=== PATIENT | female | born 1980 | race Caucasian/White ===

== ENCOUNTER → 2016-06-19 | Outpatient (CLI) | payer BC ==
[~2016-06-19] MED LIST: CITALOPRAM HBR10 MG PO; CRANBERRY TABL1 EACH PO; DESYREL-DPS50 MG PO; HYDROCODON-ACET15 ML PO; MELATONIN10 MG PO; PRILOSEC DPS20 MG PO; VITAMIN D10000 UNIT PO; ZOFRAN ODT4 MG PO
== END | disposition home or self-care (01) ==
LOC: NUE 09:30
DX: E66.9 Obesity, unspecified (principal); Z71.3 Dietary counseling and surveillance
CPT/HCPCS: 258

== ENCOUNTER → 2016-09-17 | Outpatient (CLI) | payer BC | END | disposition home or self-care (01) | LOC: PTH.S 07:03 | DX: Z01.818 Encounter for other preprocedural examination (principal); E66.01 Morbid (severe) obesity due to excess calories ==

== ENCOUNTER 2016-09-25 06:11 | Inpatient (IN) | payer BC ==
[~2016-09-25] VITALS: Ht 160 cm; Wt 122.8 kg
[2016-09-27] MEDS ORDERED: CITALOPRAM HBR10 MG PO (20:11)
[2016-09-27] MEDS ORDERED: DESYREL-DPS50 MG PO (20:11)
[2016-09-27] MEDS ORDERED: VITAMIN D10000 UNIT PO (20:12)
[2016-09-27] MEDS ORDERED: MELATONIN10 MG PO (20:14)
[2016-09-27] MEDS ORDERED: CRANBERRY TABL1 EACH PO (20:14)
[2016-09-27] MEDS ORDERED: HYDROCODON-ACET15 ML PO (20:15)
[2016-09-27] MEDS ORDERED: PRILOSEC DPS20 MG PO (20:15)
[2016-09-27] MEDS ORDERED: ZOFRAN ODT4 MG PO (20:16)
--- NOTE | 2016-09-28 15:28 | OR ---
ADMIT: 09/25/2016 RM/LOC: 618 [facility] MR#: [id number] [address] [address] MAURICIO RAMIREZ [address] [place] [address] Operative/Delivery Room Report SEX: F AGE: 36 : 1980 SURGERY DATE: 09/25/2016 SURGEON: Ari Pinedo MD PREOPERATIVE DIAGNOSIS: Morbid obesity, BMI of 48. POSTOPERATIVE DIAGNOSIS: Morbid obesity, BMI of 48. PROCEDURE: Laparoscopic vertical sleeve gastrectomy. MAKE UP GIRL: SAMUEL aGrcia, whose assistance was necessary for laparoscopic visualization and tissue retraction. ANESTHESIA: General endotracheal. ESTIMATED BLOOD LOSS: 25 mL. DESCRIPTION OF PROCEDURE: The patient was taken to the operating room and placed supine on the operating room table. General anesthesia was established. The abdomen was prepped and draped in the standard surgical fashion. A 1.5 cm supraumbilical incision was made in the skin. The fascia was grasped with a Rolf clamp, and a Veress needle was advanced into the peritoneal cavity. Carbon dioxide was used to insufflate the abdomen to 15 mmHg pressure. The Veress needle was withdrawn, and a 15 mm blunt-tipped trocar was placed. Next, 5 mm right upper quadrant, left upper quadrant, and left lateral ports were placed under visualization. The Diego liver retractor was advanced from a 5 mm subxiphoid incision and used to retract the left lobe of the liver. The angle of His was taken down with Harmonic Scalpel to expose the anterior left crura. The gastric greater curvature was then freed from the omentum with Harmonic Scalpel, beginning 8 cm proximal to the pylorus and extending to the fundus. The fundus was then completely mobilized with division of the short gastric vessels with Harmonic Scalpel. This allowed complete exposure of the left crura posteriorly. Anesthesia advanced a 38-Ukrainian blunt-tip Bougie along the lesser curvature of the stomach to the antrum. This was used for sizing of the sleeve. The sleeve was then created by firing the [place] 60 mm stapler along the Bougie in place on the lesser curve, beginning 8 cm proximal to the pylorus on the greater curve and extending to the gastroesophageal junction. Staple loads used were black on the antrum followed by subsequent green loads. Intersection points of the staple line were reinforced with Ligaclip. All staple loads were also reinforced with Veritas. FloSeal was placed on the staple line for additional ADMIT: 09/25/2016 RM/LOC: 618 [facility] MR#: [id number] [address] [address] MAURICIO RAMIREZ [address] [place] [address] Operative/Delivery Room Report SEX: F AGE: 36 : 1980 hemostasis. This was adequate upon completion. The gastric specimen was removed through the 15 mm port site. A 19-round channel drain was placed along the staple line and exited via the left lateral port site. The Diego liver retractor was withdrawn. The ports were removed under visualization with no signs of bleeding. The fascial margin at the 15 mm port site was approximated with the suture passer and an 0 Vicryl tie. The abdomen was allowed to deflate. The drain was secured to the skin with 0 silk suture. Skin edges were approximated at the other port sites with 4-0 Monocryl in a subcuticular fashion and Dermabond. Local anesthetic was injected at the incisions. Sponge, needle, and instrument counts were correct at the end of the case. The patient tolerated the procedure well and transferred to the recovery area in stable condition. Ari Pinedo MD/ michelle JOB #: [id number] CC: Ari Pinedo, Attending Physician Jacob Raymundo, Family Physician
--- NOTE | 2016-10-11 07:00 | DS ---
ADMIT: 09/25/2016 RM/LOC: 618 [facility] MR#: [id number] [address] [address] JAMESMAURICIO Giuseppe [address] [place], [place] [address] Discharge Summary SEX: F AGE: 36 : 1980 ADMISSION DATE: 09/25/2016 DISCHARGE DATE: 09/27/2016 ADMITTING DIAGNOSIS: Morbid obesity. DISMISSAL DIAGNOSES: 1. Morbid obesity. 2. Mild chronic gastritis. 3. Hyperlipidemia. 4. Thyroid disorder. 5. Tonsillectomy with adenoidectomy. 6. . 7. ACL (anterior cruciate ligament) repair. PROCEDURES: Laparoscopic vertical sleeve gastrectomy. HOSPITAL COURSE: The patient was an inpatient admit with routine med/surg orders. After surgery, the patient transferred to the floor without any complications. She was given a Dilaudid MEAT MANAGER for pain control and was kept n.p.o. Initially after surgery, the patient had some nausea but was treated appropriately with Phenergan. On postop day number one, the patient underwent an upper GI series that showed no leak at the level of the stomach. She then was started on bariatric clear liquids. Her pain was controlled so she was weaned off her morphine MEAT MANAGER and was tolerating oral pain medications. Vitals remained stable and lab work began to normalize. She was up and ambulating. She continued to recover well and was able to discharge home on 09/27/2016. A ROSALINA that was placed intraoperatively showed serosanguineous fluid so it was pulled on postop day number two prior to dismissal. DISCHARGE INSTRUCTIONS: 1. Follow up with Dr. Pinedo in clinic one week. ADMIT: 09/25/2016 RM/LOC: 618 [facility] MR#: [id number] [address] [address] KONRAD RAMIREZINA Giuseppe [address] [place] [address] Discharge Summary SEX: F AGE: 36 : 1980 2. Okay to shower. 3. Dressing off in 2-3 days. DISCHARGE MEDICATIONS: 1. Citalopram 30 mg at bedtime. 2. Trazodone 50 mg every day. 3. Vitamin D 83139 units daily. 4. Cranberry 8400 mg daily. 5. Melatonin 10 mg at bedtime. 6. Hydrocodone/acetaminophen 15-30 mL q.4-6 hours p.r.n. 7. Omeprazole 40 mg daily. 8. Zofran 4 mg oral dissolving tablet q.4h p.r.n. SAMUEL Garcia / Ari Pinedo MD / vdg JOB #: [id number] CC: Ari Pinedo MD, Attending Physician Jacob Raymundo, Family Physician
== END 2016-09-27 10:50 | disposition home or self-care (01) | DRG 621 ==
LOC: 6PED 06:11 → WOR 06:11 → 6PED 09:40
PROVIDERS: ADMIT Surgery
PROC: 0DB64Z3 Excision of Stomach, Percutaneous Endoscopic Approach, Vertical (ICD-10-PCS; principal; 2016-09-25)
DX: E66.01 Morbid (severe) obesity due to excess calories (principal); E07.9 Disorder of thyroid, unspecified; E78.5 Hyperlipidemia, unspecified; Z68.42 Body mass index [BMI] 45.0-49.9, adult; K29.50 Unspecified chronic gastritis without bleeding